=== PATIENT | female | born 1965 | race Two or more races ===

== ENCOUNTER → 2022-12-01 09:29 | Outpatient (CLI) | payer OTHER ==
[2022-12-01 10:18] LABS: HEMATOCRIT 42.8 % (36.0-45.00); HEMOGLOBIN 13.9 g/dL (12.0-15.00); MEAN CELL VOLUME 89.2 fL (80.00-100.00); MEAN CORPUSCULAR HEMOGLOBIN 28.9 pg (27.00-32.0); MEAN CORPUSCULAR HGB CONC 32.5 g/dl (32.0-36.0); PLATELET COUNT 253 K/uL (150-450); RED CELL DISTRIBUTION WIDTH 13.2 % (11.5-14.5)
[2022-12-01 10:20] LABS: URINE APPEARANCE Clear; URINE BILIRRUBIN Negative (NEGATIVE); URINE BLOOD Negative; URINE COLOR Yellow; URINE GLUCOSE Negative (NEGATIVE); URINE LEUKOCYTE Negative; URINE NITRATE Negative; URINE PROTEIN Negative (NEGATIVE); URINE UROBILINOGEN 0.2 E.U./dl
[2022-12-01 10:25] LABS: URINE BACTERIA 26.4 uL (0.0-1933); URINE EPITHELIAL CELLS 7.1 uL (0.0-38.8); URINE RBC 3.7 uL (0.0-20.8); URINE WBC 7.8 uL (0.0-23.2)
[2022-12-01 11:07] LABS: ALBUMIN 3.9 gm/dL (3.4-5.0); BILIRUBIN TOTAL 0.58 mg/dL (0.3-1.2); CALCIUM 9.3 mg/dL (8.5-10.1); CHOL HDL RATIO 3.3 (0-5.0); CREATININE SERUM 0.74 mg/dL (0.55-1.02); FREE TRIODOTIRONINE 2.92 pg/ml (2.18-3.98); GFR 80.61; GLOBULINA 3.5 G/DL (2.4-3.5); POTASSIUM 4.33 mEq/L (3.5-5.1); T4 FREE 0.93 NG/ML (0.76-1.46); T4 TOTAL 9.63 UG/DL (4.8-13.9); TOTAL PROTEIN 7.4 gm/dL (6.4-8.2); TSH 2.48 uIU/mL (0.358-3.74)
== END | disposition home or self-care (01) ==
LOC: LAB 09:29
DX: I10 Essential (primary) hypertension (principal); E78.00 Pure hypercholesterolemia, unspecified; E03.8 Other specified hypothyroidism; E11.9 Type 2 diabetes mellitus without complications; D64.9 Anemia, unspecified; N39.0 Urinary tract infection, site not specified

== ENCOUNTER → 2023-03-14 07:55 | Outpatient (CLI) | payer OTHER ==
[2023-03-14 09:10] LABS: CALCIUM 9.2 mg/dL (8.5-10.1); CREATININE SERUM 0.78 mg/dL (0.55-1.02); GFR 75.85; POTASSIUM 4.13 mEq/L (3.5-5.1)
== END | disposition home or self-care (01) ==
LOC: LAB 07:55
DX: I11.9 Hypertensive heart disease without heart failure (principal)

== ENCOUNTER 2023-11-23 07:08 | Outpatient (CLI) | payer OTHER ==
[2023-11-23 08:34] LABS: HEMATOCRIT 39.8 % (36.0-45.00); HEMOGLOBIN 13.8 g/dL (12.0-15.00); MEAN CELL VOLUME 90.4 fL (80.00-100.00); MEAN CORPUSCULAR HEMOGLOBIN 31.3 pg (27.00-32.0); MEAN CORPUSCULAR HGB CONC 34.6 g/dl (32.0-36.0); PLATELET COUNT 254 K/uL (150-450); RED CELL DISTRIBUTION WIDTH 12.8 % (11.5-14.5)
[2023-11-23 08:45] LABS: PH,URINE 5.5 (5.0-8.0); URINE APPEARANCE Clear; URINE BILIRRUBIN Negative (NEGATIVE); URINE BLOOD Negative; URINE COLOR Yellow; URINE GLUCOSE Negative (NEGATIVE); URINE KETONE Negative (NEGATIVE); URINE LEUKOCYTE Small; URINE NITRATE Negative; URINE PROTEIN Negative (NEGATIVE); URINE UROBILINOGEN 0.2 E.U./dl
[2023-11-23 08:47] LABS: URINE BACTERIA 258.2 uL (0.0-1933); URINE EPITHELIAL CELLS 11.5 uL (0.0-38.8); URINE RBC 7.1 uL (0.0-20.8); URINE WBC 18.7 uL (0.0-23.2)
[2023-11-23 08:56] LABS: URINE CAST 0.15 uL (0.0-1.40)
[2023-11-23 09:52] LABS: CHOL HDL RATIO 2.8 (0-5.0); T4 FREE 1.01 NG/ML (0.76-1.46); TSH 2.42 uIU/mL (0.358-3.74)
[2023-11-23 12:48] LABS: ALBUMIN 4.1 gm/dL (3.4-5.0); BILIRUBIN TOTAL 0.65 mg/dL (0.3-1.2); CALCIUM 9.4 mg/dL (8.5-10.1); CREATININE SERUM 0.73 mg/dL (0.55-1.02); GFR 81.6; GLOBULINA 3.5 G/DL (2.4-3.5); POTASSIUM 4.53 mEq/L (3.5-5.1); TOTAL PROTEIN 7.6 gm/dL (6.4-8.2)
== END 2023-11-23 07:11 | disposition home or self-care (01) ==
LOC: LAB 07:08
PROVIDERS: ATTEND Obstetrics & Gynecology
DX: K92.1 Melena (principal); E11.9 Type 2 diabetes mellitus without complications; E03.9 Hypothyroidism, unspecified; E78.00 Pure hypercholesterolemia, unspecified; N39.0 Urinary tract infection, site not specified; K76.9 Liver disease, unspecified; R63.4 Abnormal weight loss; A60.04 Herpesviral vulvovaginitis; R21 Rash and other nonspecific skin eruption; R50.9 Fever, unspecified

== ENCOUNTER 2023-11-23 08:09 | Outpatient (CLI) | payer OTHER | END 2023-11-23 08:18 | disposition home or self-care (01) | LOC: MAMO-SONO 08:09 | PROVIDERS: ATTEND Obstetrics & Gynecology | DX: N60.11 Diffuse cystic mastopathy of right breast (principal); N60.12 Diffuse cystic mastopathy of left breast; Z12.31 Encounter for screening mammogram for malignant neoplasm of breast ==

== ENCOUNTER 2024-01-27 07:39 | Outpatient (CLI) | payer OTHER ==
[2024-01-27 08:24] LABS: URINE APPEARANCE Clear; URINE BILIRRUBIN Negative (NEGATIVE); URINE BLOOD Negative; URINE COLOR Yellow; URINE GLUCOSE Negative (NEGATIVE); URINE KETONE Negative (NEGATIVE); URINE LEUKOCYTE Small; URINE NITRATE Negative; URINE PROTEIN Negative (NEGATIVE); URINE UROBILINOGEN 0.2 E.U./dl
[2024-01-27 08:24] LABS: HEMATOCRIT 41.1 % (36.0-45.00); HEMOGLOBIN 14.2 g/dL (12.0-15.00); MEAN CELL VOLUME 90.5 fL (80.00-100.00); MEAN CORPUSCULAR HEMOGLOBIN 31.2 pg (27.00-32.0); MEAN CORPUSCULAR HGB CONC 34.5 g/dl (32.0-36.0); PLATELET COUNT 254 K/uL (150-450); RED BLOOD COUNT 4.55 M/uL (4.00-6.00); RED CELL DISTRIBUTION WIDTH 12.9 % (11.5-14.5)
[2024-01-27 08:26] LABS: URINE BACTERIA 112.5 uL (0.0-1933); URINE EPITHELIAL CELLS 9.6 uL (0.0-38.8); URINE RBC 5.7 uL (0.0-20.8); URINE WBC 10.2 uL (0.0-23.2)
[2024-01-27 09:28] LABS: ALBUMIN 3.9 gm/dL (3.4-5.0); BILIRUBIN TOTAL 0.52 mg/dL (0.3-1.2); CALCIUM 9.7 mg/dL (8.5-10.1); CHOL HDL RATIO 3.4 (0-5.0); CREATININE SERUM 0.8 mg/dL (0.55-1.02); GFR 73.41; GLOBULINA 3.4 G/DL (2.4-3.5); POTASSIUM 4.32 mEq/L (3.5-5.1); T4 FREE 0.9 NG/ML (0.76-1.46); TOTAL PROTEIN 7.3 gm/dL (6.4-8.2); TSH 2.38 uIU/mL (0.358-3.74)
[2024-01-27 10:36] LABS: FOLIC ACID 19.83 ng/ml (4.78-20); VITAMIN D3 25 HYDROXY 24.72 ng/ml (30-120)
== END 2024-01-27 07:40 | disposition home or self-care (01) ==
LOC: LAB 07:39
PROVIDERS: ATTEND General Practice
DX: D64.9 Anemia, unspecified (principal); E11.9 Type 2 diabetes mellitus without complications; E78.79 Other disorders of bile acid and cholesterol metabolism; R80.1 Persistent proteinuria, unspecified; E03.9 Hypothyroidism, unspecified; N39.0 Urinary tract infection, site not specified; E55.9 Vitamin D deficiency, unspecified; E53.9 Vitamin B deficiency, unspecified

== ENCOUNTER 2024-01-27 13:07 | Outpatient (CLI) | payer OTHER | END 2024-01-27 13:08 | disposition home or self-care (01) | LOC: NUCLEAR 13:07 | PROVIDERS: ATTEND Obstetrics & Gynecology | DX: M81.0 Age-related osteoporosis without current pathological fracture (principal) ==

== ENCOUNTER 2024-03-05 07:37 | Outpatient (CLI) | payer OTHER | END 2024-03-05 07:39 | disposition home or self-care (01) | LOC: NUCLEAR 07:37 | DX: I73.9 Peripheral vascular disease, unspecified (principal); E11.9 Type 2 diabetes mellitus without complications; I71.9 Aortic aneurysm of unspecified site, without rupture ==

== ENCOUNTER 2024-03-05 09:27 | Outpatient (CLI) | payer OTHER | END 2024-03-05 09:34 | disposition home or self-care (01) | LOC: SONOGRAMA 09:27 | PROVIDERS: ATTEND Internal Medicine Endocrinology, Diabetes & Metabolism | DX: E04.1 Nontoxic single thyroid nodule (principal) ==

== ENCOUNTER 2024-05-14 06:49 | Outpatient (CLI) | payer OTHER ==
[2024-05-14 07:27] LABS: HEMATOCRIT 42.3 % (36.0-45.00); HEMOGLOBIN 14.5 g/dL (12.0-15.00); MEAN CELL VOLUME 90.5 fL (80.00-100.00); MEAN CORPUSCULAR HGB CONC 34.2 g/dl (32.0-36.0); PLATELET COUNT 246 K/uL (150-450); RED BLOOD COUNT 4.67 M/uL (4.00-6.00); RED CELL DISTRIBUTION WIDTH 13.1 % (11.5-14.5)
[2024-05-14 08:21] LABS: BILIRUBIN TOTAL 0.49 mg/dL (0.3-1.2); CALCIUM 9.3 mg/dL (8.5-10.1); CHOL HDL RATIO 3.3 (0-5.0); CREATININE SERUM 0.84 mg/dL (0.55-1.02); GFR 69.4; GLOBULINA 3.6 G/DL (2.4-3.5); POTASSIUM 3.82 mEq/L (3.5-5.1); TOTAL PROTEIN 7.6 gm/dL (6.4-8.2)
== END 2024-05-14 06:52 | disposition home or self-care (01) ==
LOC: LAB 06:49
DX: E78.2 Mixed hyperlipidemia (principal); I10 Essential (primary) hypertension

== ENCOUNTER → 2024-07-13 | Emergency (ER) | payer OTHER ==
[~2024-07-13] VITALS: Ht 172.7 cm; Wt 68.0 kg
[~2024-07-13] MED LIST: COZAAR100 MG PO; METFORMIN HCL500 M3 PO; NORVASC2.5 M1 PO
== END | disposition left against medical advice (07) ==
LOC: ER 23:25
DX: Z53.21 Procedure and treatment not carried out due to patient leaving prior to being seen by health care provider (principal)

== ENCOUNTER 2024-08-21 06:38 | Outpatient (CLI) | payer OTHER ==
[2024-08-21 07:22] LABS: BASO % 0.5 % (0.1-1.2); EOS # 0.11 (0.04-0.54); EOS % 1.4 % (0.7-7.0); LYMPH # 2.44 (1.18-3.74); LYMPH % 30.5 % (19.3-53.1); MEAN PLATELET VOLUME 10.20 fl (9.4-12.4); MONO # 0.55 (0.24-0.82); MONO % 6.9 % (4.7-12.5); NEUT # 4.84 (1.56-6.13); NEUT % 60.4 % (34.0-71.1); RED CELL DISTRIBUTION WIDTH 12.4 % (11.6-14.4)
[2024-08-21 07:55] LABS: URINE APPEARANCE Clear; URINE BILIRRUBIN Negative (NEGATIVE); URINE BLOOD Negative; URINE COLOR Yellow; URINE GLUCOSE Negative (NEGATIVE); URINE KETONE Negative (NEGATIVE); URINE LEUKOCYTE Moderate; URINE NITRATE Negative; URINE PROTEIN Negative (NEGATIVE); URINE UROBILINOGEN 0.2 E.U./dl
[2024-08-21 07:58] LABS: URINE BACTERIA 608.2 uL (0.0-1933); URINE EPITHELIAL CELLS 13.3 uL (0.0-38.8); URINE RBC 7.3 uL (0.0-20.8); URINE WBC 179.6 uL (0.0-23.2)
[2024-08-21 08:03] LABS: URINE CAST 0.58 uL (0.0-1.40)
[2024-08-21 08:18] LABS: ALT/SGPT 28.0 U/L (12-78); AST/SGOT 11.0 U/L (15-37); BILIRUBIN TOTAL 0.6 mg/dL (0.3-1.2); BUN CREA RATIO 22.0 (7.0-25.0); CHOL HDL RATIO 3.0 (0-5.0); CREATININE SERUM 0.73 mg/dL (0.55-1.02); GFR 81.32; GLOBULINA 3.3 G/DL (2.4-3.5); GLUCOSE FASTING 123.0 mg/dL (65-100); HDL 54.0 mg/dl (40-60); LDL 79.0 mg/dl (0-130); OSMOLALITY SERUM 286.0 MOSM/KG (275-295); T4 FREE 0.87 NG/ML (0.76-1.46); TSH 2.18 uIU/mL (0.358-3.74); VLDL 30.0 (0-39)
[2024-08-21 08:42] LABS: ob NEGATIVE (NEGATIVE)
== END 2024-08-21 06:43 | disposition home or self-care (01) ==
LOC: LAB 06:38
DX: E11.9 Type 2 diabetes mellitus without complications (principal); I11.9 Hypertensive heart disease without heart failure; Z12.11 Encounter for screening for malignant neoplasm of colon; E03.9 Hypothyroidism, unspecified; E55.9 Vitamin D deficiency, unspecified; D64.89 Other specified anemias; E78.2 Mixed hyperlipidemia; N39.0 Urinary tract infection, site not specified; R80.1 Persistent proteinuria, unspecified

== ENCOUNTER 2024-12-31 06:43 | Outpatient (CLI) | payer OTHER ==
[2024-12-31 07:34] LABS: URINE APPEARANCE Clear; URINE BILIRRUBIN Negative (NEGATIVE); URINE BLOOD Negative; URINE COLOR Yellow; URINE GLUCOSE Negative (NEGATIVE); URINE KETONE Negative (NEGATIVE); URINE LEUKOCYTE Small; URINE NITRATE Negative; URINE PROTEIN Negative (NEGATIVE); URINE UROBILINOGEN 0.2 E.U./dl
[2024-12-31 07:36] LABS: BASO % 0.5 % (0.1-1.2); EOS # 0.10 (0.04-0.54); EOS % 1.2 % (0.7-7.0); LYMPH # 2.36 (1.18-3.74); LYMPH % 28.1 % (19.3-53.1); MEAN PLATELET VOLUME 10.60 fl (9.4-12.4); MONO # 0.59 (0.24-0.82); MONO % 7.0 % (4.7-12.5); NEUT # 5.29 (1.56-6.13); NEUT % 63.1 % (34.0-71.1); RED CELL DISTRIBUTION WIDTH 11.7 % (11.6-14.4)
[2024-12-31 07:39] LABS: URINE BACTERIA 35.9 uL (0.0-1933); URINE EPITHELIAL CELLS 9.8 uL (0.0-38.8); URINE RBC 14.3 uL (0.0-20.8); URINE WBC 40.1 uL (0.0-23.2)
[2024-12-31 07:52] LABS: URINE CAST 0.14 uL (0.0-1.40)
[2024-12-31 08:50] LABS: ALT/SGPT 29.0 U/L (12-78); AST/SGOT 14.0 U/L (15-37); BILIRUBIN TOTAL 0.39 mg/dL (0.3-1.2); BUN CREA RATIO 28.0 (7.0-25.0); CHOL HDL RATIO 3.4 (0-5.0); CREATININE SERUM 0.8 mg/dL (0.55-1.02); GFR 73.16; GLOBULINA 3.5 G/DL (2.4-3.5); GLUCOSE FASTING 120.0 mg/dL (65-100); HDL 48.0 mg/dl (40-60); LDL 79.0 mg/dl (0-130); OSMOLALITY SERUM 289.0 MOSM/KG (275-295); T4 FREE 0.93 NG/ML (0.76-1.46); TSH 2.12 uIU/mL (0.358-3.74); VLDL 35.0 (0-39)
== END 2024-12-31 06:49 | disposition home or self-care (01) ==
LOC: LAB 06:43
DX: E11.9 Type 2 diabetes mellitus without complications (principal); E03.9 Hypothyroidism, unspecified; Z12.11 Encounter for screening for malignant neoplasm of colon; I11.9 Hypertensive heart disease without heart failure; E73.9 Lactose intolerance, unspecified; E55.9 Vitamin D deficiency, unspecified; D64.89 Other specified anemias; E11.69 Type 2 diabetes mellitus with other specified complication; E78.2 Mixed hyperlipidemia; N39.0 Urinary tract infection, site not specified